=== PATIENT | born 1995 | race Caucasian/White ===

== ENCOUNTER → 2024-11-07 14:32 | Outpatient (BNVA) | payer OTHER, SELFPAY | PROVIDERS: Visit Provider Internal Medicine Rheumatology | DX: M05.20 Rheumatoid vasculitis with rheumatoid arthritis of unspecified site (principal) | CPT/HCPCS: 36415; 82085; 82550; 83520; 86200 ==

== ENCOUNTER → 2025-03-27 11:07 | Outpatient (BNVA) | payer OTHER, SELFPAY | PROVIDERS: Visit Provider Internal Medicine Rheumatology | DX: Z79.899 Other long term (current) drug therapy (principal) | CPT/HCPCS: 36415; 80076; 82306; 82565; 82607; 82746; 83540; 83550; 85025; 85651; 86140 ==